=== PATIENT | male | born 1960 | race Caucasian/White ===

== ENCOUNTER 2016-08-04 14:37 | Emergency (ER) | payer SELFPAY | END 2016-08-04 15:14 | disposition home or self-care (01) | LOC: ER 14:37 | DX: M70.71 Other bursitis of hip, right hip (principal); J45.909 Unspecified asthma, uncomplicated; F17.210 Nicotine dependence, cigarettes, uncomplicated; Z79.899 Other long term (current) drug therapy | CPT/HCPCS: 73502-RT ==